=== PATIENT | male | born 2005 ===

== ENCOUNTER 2024-05-29 16:45 | Emergency (ER) | payer SELFPAY ==
[2024-05-29] MEDS: Sodium Bicarbonate 8.4% 50 MEQ/50 ML Syringe IVPUSH ONE ×2 (16:45→16:46)
[2024-05-29] MEDS: Sodium Chloride 0.9% 1,000 ML IV ONE ×2 (16:45)
[2024-05-29 17:06] LABS: HEMOGLOBIN 15.6 g/dL (12.9-16.9); MEAN CORPUSCULAR HGB CONC 32.5 g/dL (31.6-35.5); MEAN CORPUSCULAR VOLUME 95.4 fL (81.4-99.0); PLATELET COUNT,PLT 284 K/uL (130-375); RED BLOOD CELL COUNT 5.03 M/uL (4.14-5.76); WHITE BLOOD CELL COUNT,WBC 13.8 K/uL (3.2-11.0)
[2024-05-29 17:07] LABS: O2 SATURATION ARTERIAL 96.9 % (95.0-98.0); OXYHEMOGLOBIN 95.6 %; PCO2 ARTERIAL 21.1 mmHg (35.0-42.0); TOTAL HEMOGLOBIN 16.6 g/dL (13.5-18.0)
[2024-05-29 17:08] LABS: BASE EXCESS ARTERIAL -32.4 mm/L; BICARBONATE,ARTERIAL 3.7 mmol/L (22.0-26.0)
[2024-05-29 17:09] LABS: CARBOXYHEMOGLOBIN < 0.5 % (0.0-1.6)
[2024-05-29 17:11] LABS: A/G RATIO 1.2 (1.2-2.2); ALANINE AMINOTRANSFERASE,ALT 30 U/L (12-78); ALBUMIN 4.7 g/dL (3.4-5.0); ALKALINE PHOSPHATASE 218 U/L (46-116); ANION GAP 37.5 mmol/L (5.0-14.0); ASPARTATE AMNIOTRANSFERASE,AST 33 U/L (15-37); BILIRUBIN TOTAL 0.3 mg/dL (0.2-1.0); BLOOD UREA NITROGEN,BUN 9 mg/dL (7-18); CALCIUM 8.9 mg/dL (8.5-10.1); CHLORIDE,CL 101 mmol/L (100-108); CREATININE 1.6 mg/dL (0.8-1.3); EST CRCL DRUG DOSING (CG) 69.43 mL/min; ESTIMATED GFR 63 mL/min (>60); GLUCOSE RANDOM 205 mg/dL (74-106); POTASSIUM,K 4.5 mmol/L (3.6-5.2); PROTEIN TOTAL,TP 8.5 g/dL (6.4-8.2); SODIUM,NA 139 mmol/L (140-148)
[2024-05-29] MEDS: Naloxone 0.4 MG/ML SDV IVPUSH ONE (17:13)
[2024-05-29 17:15] LABS: EOSINOPHILS ABSOLUTE MAN 0.14 K/uL (0.00-0.40); EOSINOPHILS PERCENT MAN 1 % (2-4); LYMPHOCYTES ABSOLUTE MAN 9.66 K/uL (0.8-3.3); LYMPHOCYTES PERCENT MAN 70 % (24-44); MONOCYTES PERCENT MAN 8 % (2-6); SEG NEUTROPHILS PERCENT MAN 21 % (36-66)
[2024-05-29 17:23] LABS: BICARBONATE,VENOUS 13.7 mmol/L; CARBOXYHEMOGLOBIN 1.9 % (0.0-1.6); METHEMOGLOBIN 1.1 %; O2 SATURATION VENOUS 86.8; OXYHEMOGLOBIN 84.2 %; PCO2 VENOUS 34.6 mm/Hg; PO2 VENOUS 67.2 mm/Hg; TOTAL HEMOGLOBIN 14.7 g/dL (13.5-18.0)
[2024-05-29 17:34] LABS: APPEARANCE,URINE SLIGHTLY CLOUDY (CLEAR); BILIRUBIN,URINE NEGATIVE (NEGATIVE); COLOR,URINE YELLOW (YELLOW); GLUCOSE,URINE NEGATIVE (NEGATIVE); KETONES,URINE NEGATIVE (NEGATIVE); LEUKOCYTE ESTERASE,URINE NEGATIVE (NEGATIVE); NITRITE,URINE NEGATIVE (NEGATIVE); OCCULT BLOOD,URINE SMALL (NEGATIVE); PROTEIN,URINE 100 mg/dL (NEGATIVE); UROBILINOGEN,URINE 0.2 EU/dL (0.2-1.0)
[2024-05-29 17:39] LABS: AMORPHOUS SEDIMENT,URINE NOT SEEN; AMPHETAMINES SCREEN, URINE NEGATIVE (NEGATIVE); BACTERIA,URINE NOT SEEN; BARBITURATE SCREEN,URINE NEGATIVE (NEGATIVE); BENZODIAZEPINES SCREEN,URINE NEGATIVE (NEGATIVE); EPITHELIAL CELLS,URINE NOT SEEN; METHADONE SCREEN, URINE NEGATIVE (NEGATIVE); METHAMPHETAMINES SCREEN, URINE NEGATIVE (NEGATIVE); MUCUS,URINE NOT SEEN; OXYCODONE SCREEN,URINE NEGATIVE (NEGATIVE); PROPOXYPHENE SCREEN,URINE NEGATIVE (NEGATIVE); RBC,URINE 0-5 (0-5); THC SCREEN,URINE 50 NG/ML NEGATIVE (NEGATIVE); WBC,URINE NOT SEEN (0-5)
[2024-05-29 17:42] LABS: CREATINE KINASE,CK 640 U/L (39-308)
[2024-05-29] MEDS: Ketorolac 15 MG/ML SDV IVPUSH ONE (17:45)
[2024-05-29] MEDS: Sodium Chloride 0.9% 1,000 ML IV SCH (18:45)
[2024-05-29] MEDS: Ondansetron 4 MG/2 ML SDV IVPUSH ONE (18:50)
[2024-05-30 07:53] LABS: CARBON DIOXIDE,CO2 < 5 mmol/L (21-32)
== END 2024-05-29 20:14 ==
LOC: JP.ED 16:45
DX: T75.1XXA Unspecified effects of drowning and nonfatal submersion, initial encounter (principal); Y93.11 Activity, swimming
CPT/HCPCS: 36415; 36600; 51702; 71045; 80053; 80305; 80307; 81001; 82550; 82803; 83605; 85025; 93005; 96361; 96374; 96375; 99285; J1885; J2310; J2405; J7030